=== PATIENT | female | born 1950 | race Caucasian/White ===

== ENCOUNTER 2022-07-05 11:54 | Outpatient (CLI) | payer MEDICARE, OTHER | END 2022-07-05 11:55 | disposition EMS.NT | LOC: EMS 11:54 | DX: R10.9 Unspecified abdominal pain (principal); M54.50 Low back pain, unspecified ==

== ENCOUNTER 2022-07-05 12:44 | Emergency (ER) | payer MEDICARE, OTHER ==
[2022-07-05 13:38] LABS: BASOPHILS % (AUTO) 0.5 %; EOSINOPHILS # (AUTO) 0.3 10^3/uL (0.0-0.7); HCT - HEMATOCRIT 37.9 % (37.0-47.0); HGB - HEMOGLOBIN 11.5 g/dL (12.0-16.0); LYMPHOCYTES # (AUTO) 2.3 10^3/uL (1.5-3.5); LYMPHOCYTES % (AUTO) 27.3 %; MEAN CORPUSCULAR HEMOGLOBIN 26.4 pg (27.0-31.0); MEAN CORPUSCULAR HGB CONC 30.3 g/dL (32.0-36.0); MEAN CORPUSCULAR VOLUME 87.1 fL (81.0-99.0); MEAN PLATELET VOLUME 8.3 fL (7.9-10.8); MONOCYTES # (AUTO) 0.8 10^3/uL (0.0-1.0); MONOCYTES % (AUTO) 9.1 %; NEUTROPHILS # (AUTO) 4.8 10^3/uL (1.5-6.6); NEUTROPHILS % (AUTO) 58.1 %; PLT - PLATELET COUNT 275 10^3/uL (130-450); RED BLOOD COUNT 4.35 10^6/uL (4.20-5.40); RED CELL DISTRIBUTION WIDTH 14.5 % (12.0-15.0); WHITE BLOOD COUNT 8.3 x10^3/uL (4.8-10.8)
[2022-07-05] MEDS ORDERED: KETOROLAC 30 MG/ML VIAL IVP STA (13:48)
[2022-07-05] MEDS ORDERED: HYDROmorphone 1 MG/ML CARPUJECT IVP STA (13:49)
[2022-07-05 13:51] LABS: ALBUMIN 3.9 g/dL (3.2-5.5); ALBUMIN/GLOBULIN RATIO 1.3 (1.0-2.2); BILIRUBIN,TOTAL 0.3 mg/dL (0.2-1.0); CALCIUM 9.3 mg/dL (8.5-10.3); CREATININE 0.6 mg/dL (0.4-1.0); POTASSIUM 4.8 mmol/L (3.5-5.0)
[2022-07-05 14:59] LABS: BILIRUBIN,URINE NEGATIVE (NEGATIVE); GLUCOSE, URINE (UA) NEGATIVE (NEGATIVE); KETONES,URINE (UA) NEGATIVE (NEGATIVE); LEUKOCYTE ESTERASE, URINE NEGATIVE (NEGATIVE); NITRITE,URINE NEGATIVE (NEGATIVE); OCCULT BLOOD,URINE NEGATIVE (NEGATIVE); PROTEIN,URINE NEGATIVE (NEGATIVE); UROBILINOGEN,URINE 0.2 (NORMAL) E.U./dL (NORMAL)
[2022-07-05 15:00] LABS: CLARITY,URINE CLEAR (CLEAR)
--- NOTE | 2022-07-05 15:36 | CT Report ---
PROCEDURE: Abdomen/Pelvis W INDICATIONS: diffuse abd pain CONTRAST: IV CONTRAST: Optiray 320 ml: 100 PO CONTRAST: *NO PO CONTRAST TECHNIQUE: After the administration of IV contrast, 5 mm thick sections acquired from the diaphragms to the symp hysis. 5 mm thick coronal and sagittal reformats were acquired. For radiation dose reduction, the f ollowing was used: automated exposure control, adjustment of mA and/or kV according to patient size. COMPARISON: None. FINDINGS: Image quality: Excellent. ABDOMEN: Lung bases: Lung bases are clear. Heart size is normal. Solid organs: Liver and spleen are normal in size and enhancement. Low-attenuation hepatic foci are present consistent with simple cyst. Gallbladder is unremarkable Biliary system is non dilated. Pa ncreas enhances normally. No adrenal nodules. Kidneys demonstrate normal size and enhancement, with out hydronephrosis. Peritoneum and bowel: Bowel loops demonstrate normal wall thickness and caliber. No free fluid or a ir. Prominent colonic stool is present without obstruction. Scattered diverticula are present withou t inflammatory change. Nodes and vessels: No retroperitoneal or mesenteric adenopathy by size criteria. Aorta and inferior vena cava are normal in size. Miscellaneous: No ventral hernias. PELVIS: Genitourinary: Bladder wall thickness is normal. Miscellaneous: No inguinal hernias or adenopathy. Bones: No suspicious bony lesions. No vertebral body compression fractures. IMPRESSION: Significant colonic stool consistent with constipation. No obstruction. Reviewed by: Violetta Marquez MD on 07/05/2022 3:34 PM PDT Approved by: Violetta Marquez MD on 07/05/2022 3:34 PM PDT Station ID: [id number]
--- NOTE | 2022-07-05 15:43 | ED Physician Documentation ---
History of Present Illness - Stated complaint Stated Complaint: PELVIC PX - Chief complaint Chief Complaint: Abd Pain - History obtained from History obtained from: Patient - History of Present Illness Timing: Chronic ("years") Pain level max: 9 Pain level now: 9 - Additonal information Additional information: Patient is a 72-year-old female who states that she just moved here this week. She states she has had chronic pelvic pain for many years. 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 She states that she is out of the lidocaine cream. She states she is also having lower abdominal pain and cramping. This is also been going on for years. No fevers. No chills. Has chronic back pain as well. No vaginal bleeding or discharge. No loss of bowel or bladder control. She is on chronic narcotic medication at home. She has an appointment with a new PCP next week. Nothing makes the pelvic pain better or worse. Patient states that she had a history of endometriosis when she was younger. Review of Systems Ten Systems: 10 systems reviewed and negative Constitutional: denies: Fever, Chills Nose: denies: Rhinorrhea / runny nose, Congestion Respiratory: denies: Cough GI: denies: Nausea, Vomiting, Diarrhea, Hematemesis, Bloody / black stool Skin: denies: Rash Musculoskeletal: denies: Neck pain, Back pain Neurologic: denies: Headache PD PAST MEDICAL HISTORY - Past Medical History Past Medical History: Yes Cardiovascular: Hypertension, High cholesterol Other Past Medical History: vulvodynia, chronic back pain, chronic pelvic pain, "spastic urethra" - Present Medications Home Medications: Ambulatory Orders Medication Instructions Recorded Confirmed Amlodipine Besylate [Norvasc] 5 mg PO DAILY 07/05/22 07/05/22 Atenolol [Tenormin] 100 mg PO DAILY 07/05/22 07/05/22 Atorvastatin [Lipitor] 20 mg PO DAILY 07/05/22 07/05/22 Azelastine HCl 137 mcg NS BID #1 each 07/05/22 Carisoprodol [Soma] 350 mg PO Q8HR PRN 07/05/22 07/05/22 Clobetasol 0.05% Oint [Temovate 1 applic TOP DAILY 07/05/22 07/05/22 0.05% Oint] Gabapentin [Neurontin] 600 mg PO Q6HR 07/05/22 07/05/22 Hydrocodone/Acetaminophen 10 - 325 mg PO Q4HR PRN 07/05/22 07/05/22 [Hydrocodone-Acetamin 10-325 mg] Lidocaine Ointment 5% [Xylocaine 1 applic TOP QID 07/05/22 07/05/22 Ointment 5%] Lidocaine Ointment 5% [Xylocaine 1 applic TOP QID PRN #35.44 gm 07/05/22 Ointment 5%] Losartan [Cozaar] 100 mg PO DAILY 07/05/22 07/05/22 Metformin HCl 1,000 mg PO BID 07/05/22 07/05/22 Miconazole Nitrate [Miconazole 7] 100 mg TOP HS 07/05/22 07/05/22 Omeprazole 20 mg PO DAILY 07/05/22 07/05/22 Oxymorphone HCl [Oxymorphone HCl 10 mg PO BID 07/05/22 07/05/22 ER] PARoxetine HCl [Paxil] 20 mg PO DAILY 07/05/22 07/05/22 Rivaroxaban [Xarelto] 20 mg PO DAILY 07/05/22 07/05/22 SITagliptin [Januvia] 100 mg PO DAILY 07/05/22 07/05/22 - Allergies Allergies/Adverse Reactions: Allergies Allergy/AdvReac Type Severity Reaction Status Date / Time amoxicillin [From Augmentin] Allergy Nausea Verified 07/05/22 13:11 clavulanic acid Allergy Nausea Verified 07/05/22 13:11 [From Augmentin] prochlorperazine Allergy Anaphylaxis Verified 07/05/22 13:11 [From Compazine] promethazine [From Phenergan] Allergy Unknown Verified 07/05/22 14:14 Sulfa (Sulfonamide Allergy Hives Verified 07/05/22 13:11 Antibiotics) - Living Situation Living Arrangement: reports: At home - Social History Does the pt have substance abuse?: No - Family History Family history: reports: Non contributory PD ED PE NORMAL - Vitals Vital signs reviewed: Yes - General General: Alert and oriented X 3, No acute distress - HEENT HEENT: PERRL, Moist mucous membranes - Neck Neck: Supple, no meningeal sign - Cardiac Cardiac: RRR - Respiratory Respiratory: No respiratory distress, Clear bilaterally - Abdomen Abdomen: Soft, Non tender, Non distended - Female Female : Pt declined - Back Back: No CVA TTP - Derm Derm: Warm and dry, No rash - Extremities Extremities: No edema, No calf tenderness / cord - Neuro Neuro: Alert and oriented X 3 - Psych Psych: Normal mood, Normal affect Results - Vitals Vitals: Vital Signs - 24 hr 07/05/22 07/05/22 07/05/22 13:02 16:04 16:29 Temperature 37.0 C Heart Rate 90 76 76 Respiratory 16 12 16 Rate Blood Pressure 122/100 H 135/69 H 135/69 H O2 Saturation 99 98 98 Oxygen O2 Source Room air - Labs Labs: Laboratory Tests 07/05/22 07/05/22 07/05/22 13:33 13:33 14:56 WBC 8.3 RBC 4.35 Hgb 11.5 L Hct 37.9 MCV 87.1 MCH 26.4 L MCHC 30.3 L RDW 14.5 Plt Count 275 MPV 8.3 Neut # (Auto) 4.8 Lymph # (Auto) 2.3 [place] # (Auto) 0.8 Eos # (Auto) 0.3 Baso # (Auto) 0.0 Absolute Nucleated RBC 0.00 Nucleated RBC % 0.0 Sodium 132 L Potassium 4.8 Chloride 91 L Carbon Dioxide 33 H Anion Gap 8.0 BUN 14 Creatinine 0.6 Estimated GFR (MDRD) 98 Glucose 98 Calcium 9.3 Total Bilirubin 0.3 AST 19 ALT 19 Alkaline Phosphatase 72 Total Protein 7.0 Albumin 3.9 Globulin 3.1 Albumin/Globulin Ratio 1.3 Lipase 40 Urine Color YELLOW Urine Clarity CLEAR Urine pH 7.0 Ur Specific [place] 1.015 Urine Protein NEGATIVE Urine Glucose (UA) NEGATIVE Urine Ketones NEGATIVE Urine Occult Blood NEGATIVE Urine Nitrite NEGATIVE Urine Bilirubin NEGATIVE Urine Urobilinogen 0.2 (NORMAL) Ur Leukocyte Esterase NEGATIVE Ur Microscopic Review NOT INDICATED Urine Culture Comments NOT INDICATED - Rads (name of study) CT abdomen pelvis Radiology: Final report received, EMP read contemporaneously, See rad report PD MEDICAL DECISION MAKING - ED course Complexity details: reviewed results, re-evaluated patient, considered differential, d/w patient ED course: Patient is a 72-year-old female with chronic back and chronic pelvic pain. She states that she is out of her lidocaine and we will refill this for her. She is also out of her nasal spray. This was prescribed as well. CT scan does not show any acute findings other than constipation. Patient states that she will manage this at home with her laxatives. Pain well controlled here. Patient states he has plenty of pain medication for home. Recommend that she follow-up with her PCP for further care. We also discussed that given her multitude of medical issues, she will likely need to seek medical care [place] such as [facility] or [facility] in [place]. She states that she is supposed to see ENT, neurology, spine surgery, gynecology, and gastroenterology. [place] Patient is currently feeling better and would like to go home. Patient counseled regarding signs and symptoms for which I believe and urgent re-evaluation would be necessary. Patient with good understanding of and agreement to plan and is comfortable going home at this time This document was made in part using voice recognition software. While efforts are made to proofread this document, sound alike and grammatical errors may occur. Departure - Departure Disposition: 01 Home, Self Care Clinical Impression: Pelvic pain in female Constipation Qualifiers: Constipation type: unspecified constipation type Qualified Code(s): K59.00 - Constipation, unspecified Condition: Good Instructions: ED Abdominal Pain Female Non-Specific Abdominal Pain Follow-Up: your,doctor in 1 week [Other] [facility] [Provider Group] [facility] [Provider Group] Prescriptions: Azelastine HCl 137 mcg NS BID #1 each Lidocaine Ointment 5% [Xylocaine Ointment 5%] 1 applic TOP QID PRN #35.44 gm PRN Reason: pain Comments: The cause of your symptoms is unclear today. Your laboratory testing does not show any acute abnormalities. Your urinalysis is normal. Your CT scan shows constipation. Please continue your current medications and follow-up with your doctor for further care. As we discussed your complicated medical needs will need to see specialist [place]. It is recommended that you establish care with either the [facility], [place], operated by [facility] or [facility]. Discharge Date/Time: 07/05/22 16:31
[2022-07-05 16:04] VITALS: BP 135/69
== END 2022-07-05 16:31 | disposition home or self-care (01) ==
LOC: ED 12:44
DX: R10.2 Pelvic and perineal pain (principal); K59.00 Constipation, unspecified
CPT/HCPCS: 36415; 74177; 80053; 81003; 83690; 85025; 96374; 96375; 99284; J1170; Q9967; 81001; 87086

== ENCOUNTER 2022-10-31 16:29 | Outpatient (CLI) | payer MEDICARE, OTHER | END 2022-10-31 23:59 | disposition critical access hospital (66) | LOC: EMS 16:29 | DX: R05.9 Cough, unspecified (principal); R06.02 Shortness of breath; M54.9 Dorsalgia, unspecified; R07.9 Chest pain, unspecified; F41.9 Anxiety disorder, unspecified | CPT/HCPCS: A0425; A0427 ==

== ENCOUNTER 2022-10-31 16:46 | Emergency (ER) | payer MEDICARE, OTHER ==
--- NOTE | 2022-10-31 17:18 | ED Physician Documentation ---
PD HPI CHEST PAIN - Stated complaint Stated Complaint: CP/SOA/COUGH - Chief complaint Chief Complaint: Cardiac - History obtained from History obtained from: Patient, EMS - History of Present Illness Timing - onset: Last night (onset of left parasternal and pectoral area pain with coughing and breathing started last evening, but she has had cough and dyspnea/wheezing for 4-5 days.) Timing - onset during: Rest, Light activity Timing - details: Gradual onset, Still present, Waxing and waning Quality: Aching, Sharp (with cough and breathing), Pain Location: Substernal, Left chest Radiation: No: Jaw, Neck, Back Improved by: Rest Worsened by: Inspiration, Movement, Other (cough) Associated symptoms: Shortness of air, Cough (with wheezing andgreen sputum production for few days. Started with clear phlegm cough.) Similar symptoms before: Diagnosis (history of COPD and pneumonia in the past. States she has home oxygen at 2-3 lpm. MDIs and nebulizer. Had CPAP but it is in storage when moved here 4 months ago.) Recently seen: Not recently seen Review of Systems Constitutional: reports: Chills, Myalgias. denies: Fever Nose: reports: Congestion Throat: denies: Sore throat Cardiac: reports: Chest pain / pressure. denies: Palpitations, Pedal edema, Calf pain Respiratory: reports: Dyspnea, Cough, Wheezing GI: denies: Abdominal Pain, Nausea, Vomiting, Diarrhea Skin: denies: Rash, Lesions Neurologic: reports: Generalized weakness. denies: Focal weakness, Numbness, Near syncope Psychiatric: reports: Depressed, Anxiety, Insomnia PD PAST MEDICAL HISTORY - Past Medical History Cardiovascular: Hypertension, High cholesterol Respiratory: COPD, Sleep apnea Endocrine/Autoimmune: Type 2 diabetes GI: None Psych: Anxiety - Present Medications Home Medications: Ambulatory Orders Medication Instructions Recorded Confirmed Amlodipine Besylate [Norvasc] 5 mg PO DAILY 07/05/22 07/05/22 Atenolol [Tenormin] 100 mg PO DAILY 07/05/22 07/05/22 Atorvastatin [Lipitor] 20 mg PO DAILY 07/05/22 07/05/22 Azelastine HCl 137 mcg NS BID #1 each 07/05/22 Carisoprodol [Soma] 350 mg PO Q8HR PRN 07/05/22 07/05/22 Clobetasol 0.05% Oint [Temovate 1 applic TOP DAILY 07/05/22 07/05/22 0.05% Oint] Gabapentin [Neurontin] 600 mg PO Q6HR 07/05/22 07/05/22 Hydrocodone/Acetaminophen 10 - 325 mg PO Q4HR PRN 07/05/22 07/05/22 [Hydrocodone-Acetamin 10-325 mg] Lidocaine Ointment 5% [Xylocaine 1 applic TOP QID 07/05/22 07/05/22 Ointment 5%] Lidocaine Ointment 5% [Xylocaine 1 applic TOP QID PRN #35.44 gm 07/05/22 Ointment 5%] Losartan [Cozaar] 100 mg PO DAILY 07/05/22 07/05/22 Metformin HCl 1,000 mg PO BID 07/05/22 07/05/22 Miconazole Nitrate [Miconazole 7] 100 mg TOP HS 07/05/22 07/05/22 Omeprazole 20 mg PO DAILY 07/05/22 07/05/22 Oxymorphone HCl [Oxymorphone HCl 10 mg PO BID 07/05/22 07/05/22 ER] PARoxetine HCL [Paxil] 20 mg PO DAILY 07/05/22 07/05/22 Rivaroxaban [Xarelto] 20 mg PO DAILY 07/05/22 07/05/22 SITagliptin [Januvia] 100 mg PO DAILY 07/05/22 07/05/22 ALPRAZolam [Xanax] 0.25 mg PO BID PRN #10 tablet 10/31/22 Albuterol Sulf [Ventolin Hfa 2 - 3 puffs INH QID #1 each 10/31/22 Inhaler] Benzonatate [Tessalon] 100 mg PO TID PRN #20 cap 10/31/22 Doxycycline Hyclate 100 mg PO BID 5 Days #10 cap 10/31/22 dexAMETHasone [Decadron] 4 mg PO DAILY #5 tablet 10/31/22 - Allergies Allergies/Adverse Reactions: Allergies Allergy/AdvReac Type Severity Reaction Status Date / Time amoxicillin [From Augmentin] Allergy Nausea Verified 07/05/22 13:11 clavulanic acid Allergy Nausea Verified 07/05/22 13:11 [From Augmentin] prochlorperazine Allergy Anaphylaxis Verified 07/05/22 13:11 [From Compazine] promethazine [From Phenergan] Allergy Unknown Verified 07/05/22 14:14 Sulfa (Sulfonamide Allergy Hives Verified 07/05/22 13:11 Antibiotics) - Social History Does the pt have substance abuse?: No PD ED PE NORMAL - Vitals Vital signs reviewed: Yes - General General: Alert and oriented X 3, No acute distress, Well developed/nourished - HEENT HEENT: Pharynx benign - Neck Neck: Supple, no meningeal sign, No adenopathy - Cardiac Cardiac: RRR, No murmur - Respiratory Respiratory: No respiratory distress. No: Clear bilaterally (some wheezing noted centrally. there is left parasternal and medial pectoral area chestwall tenderness to palpation. ) - Abdomen Abdomen: Soft, Non tender - Derm Derm: Normal color, Warm and dry, No rash - Extremities Extremities: No edema, No calf tenderness / cord - Neuro Neuro: Alert and oriented X 3, No motor deficit, Normal speech Results - Vitals Vitals: Vital Signs - 24 hr 10/31/22 10/31/22 10/31/22 16:57 17:03 19:01 Temperature 36.0 C L Heart Rate 78 73 Respiratory 18 14 Rate Blood Pressure 158/82 H 197/99 H Blood Pressure 158/82 H [Right] O2 Saturation 100 99 If not protocol 3 : Oxygen Flow, liters/minute 10/31/22 10/31/22 19:29 19:53 Temperature Heart Rate 79 87 Respiratory 16 15 Rate Blood Pressure 189/121 H Blood Pressure [Right] O2 Saturation 100 If not protocol 3 2 : Oxygen Flow, liters/minute Oxygen O2 Source Nasal cannula - EKG (time done) 16:57 Rate: Rate (enter#) (73) Rhythm: NSR [place]: Normal Intervals: Normal MD QRS: Normal Ischemia: Normal ST segments. No: ST elevation c/w ischemia, ST depression - Labs Labs: Laboratory Tests 10/31/22 10/31/22 10/31/22 17:19 17:19 17:19 WBC 8.6 RBC 4.24 Hgb 11.4 L Hct 37.4 MCV 88.2 MCH 26.9 L MCHC 30.5 L RDW 15.9 H Plt Count 264 MPV 8.6 Neut # (Auto) 5.4 Lymph # (Auto) 2.1 [place] # (Auto) 0.7 Eos # (Auto) 0.2 Baso # (Auto) 0.1 Absolute Nucleated RBC 0.00 Nucleated RBC % 0.0 PT INR Sodium 134 L Potassium 4.1 Chloride 91 L Carbon Dioxide 29 Anion Gap 14.0 H BUN 12 Creatinine 0.7 Estimated GFR (MDRD) 82 L Glucose 171 H Calcium 9.4 Magnesium Total Bilirubin 0.3 AST 21 ALT 22 Alkaline Phosphatase 74 Troponin I High Sens 4.5 B-Natriuretic Peptide Total Protein 7.2 Albumin 3.9 Globulin 3.3 Albumin/Globulin Ratio 1.2 Lipase 37 Nasal Adenovirus (PCR) Nasal B. parapertussis DNA (PCR) Nasal Coronavir 229E PCR Nasal Coronavir HKU1 PCR Nasal Coronavir NL63 PCR Nasal Coronavir OC43 PCR Nasal Enterovir/Rhinovir PCR Nasal Influenza B PCR Nasal Influenza A PCR Nasal Parainfluen 1 PCR Nasal Parainfluen 2 PCR Nasal Parainfluen 3 PCR Nasal Parainfluen 4 PCR Nasal RSV (PCR) Nasal B.pertussis DNA PCR Nasal C.pneumoniae (PCR) Johnny Human Metapneumo PCR Nasal M.pneumoniae (PCR) Nasal SARS-CoV-2 (PCR) 10/31/22 10/31/22 10/31/22 17:19 17:19 17:45 WBC RBC Hgb Hct MCV MCH MCHC RDW Plt Count MPV Neut # (Auto) Lymph # (Auto) [place] # (Auto) Eos # (Auto) Baso # (Auto) Absolute Nucleated RBC Nucleated RBC % PT 19.0 H INR 1.8 H Sodium Potassium Chloride Carbon Dioxide Anion Gap BUN Creatinine Estimated GFR (MDRD) Glucose Calcium Magnesium 2.1 Total Bilirubin AST ALT Alkaline Phosphatase Troponin I High Sens B-Natriuretic Peptide 146 H Total Protein Albumin Globulin Albumin/Globulin Ratio Lipase Nasal Adenovirus (PCR) Nasal B. parapertussis DNA (PCR) Nasal Coronavir 229E PCR Nasal Coronavir HKU1 PCR Nasal Coronavir NL63 PCR Nasal Coronavir OC43 PCR Nasal Enterovir/Rhinovir PCR Nasal Influenza B PCR Nasal Influenza A PCR Nasal Parainfluen 1 PCR Nasal Parainfluen 2 PCR Nasal Parainfluen 3 PCR Nasal Parainfluen 4 PCR Nasal RSV (PCR) Nasal B.pertussis DNA PCR Nasal C.pneumoniae (PCR) Johnny Human Metapneumo PCR Nasal M.pneumoniae (PCR) Nasal SARS-CoV-2 (PCR) 10/31/22 18:00 WBC RBC Hgb Hct MCV MCH MCHC RDW Plt Count MPV Neut # (Auto) Lymph # (Auto) [place] # (Auto) Eos # (Auto) Baso # (Auto) Absolute Nucleated RBC Nucleated RBC % PT INR Sodium Potassium Chloride Carbon Dioxide Anion Gap BUN Creatinine Estimated GFR (MDRD) Glucose Calcium Magnesium Total Bilirubin AST ALT Alkaline Phosphatase Troponin I High Sens B-Natriuretic Peptide Total Protein Albumin Globulin Albumin/Globulin Ratio Lipase Nasal Adenovirus (PCR) NOT DETECTED Nasal B. parapertussis DNA (PCR) NOT DETECTED Nasal Coronavir 229E PCR NOT DETECTED Nasal Coronavir HKU1 PCR NOT DETECTED Nasal Coronavir NL63 PCR NOT DETECTED Nasal Coronavir OC43 PCR NOT DETECTED Nasal Enterovir/Rhinovir PCR NOT DETECTED Nasal Influenza B PCR NOT DETECTED Nasal Influenza A PCR NOT DETECTED Nasal Parainfluen 1 PCR NOT DETECTED Nasal Parainfluen 2 PCR NOT DETECTED Nasal Parainfluen 3 PCR NOT DETECTED Nasal Parainfluen 4 PCR NOT DETECTED Nasal RSV (PCR) NOT DETECTED Nasal B.pertussis DNA PCR NOT DETECTED Nasal C.pneumoniae (PCR) NOT DETECTED Johnny Human Metapneumo PCR NOT DETECTED Nasal M.pneumoniae (PCR) NOT DETECTED Nasal SARS-CoV-2 (PCR) NOT DETECTED - Rads (name of study) chest xray Radiology: Prelim report reviewed (no acute process), See rad report PD Medical Decision Making - ED course Complexity details: reviewed results, re-evaluated patient, considered differential (seems like URI and cough and pleuritic or muscular chest pain. can check labs and CXR/ECG to ensure not more. She does have anxiety as well. History of COPD and PCR neg so consider possible bacterial component. Allergy to PCN, so will go with doxy. ), d/w patient Departure - Departure Disposition: 01 Home, Self Care Clinical Impression: Acute exacerbation of COPD with asthma, Anxiety, Acute chest wall pain Upper respiratory infection Qualifiers: URI type: unspecified URI Qualified Code(s): J06.9 - Acute upper respiratory infection, unspecified Condition: Stable Record reviewed to determine appropriate education?: Yes Instructions: ED Upper Resp Infec Abx Tx, ED Strain Chest Wall Follow-Up: Raúl Nguyen MD [Primary Care Provider] - Prescriptions: dexAMETHasone [Decadron] 4 mg PO DAILY #5 tablet Doxycycline Hyclate 100 mg PO BID 5 Days #10 cap Benzonatate [Tessalon] 100 mg PO TID PRN #20 cap PRN Reason: Cough Albuterol Sulf [Ventolin Hfa Inhaler] 2 - 3 puffs INH QID #1 each ALPRAZolam [Xanax] 0.25 mg PO BID PRN #10 tablet PRN Reason: Anxiety Comments: Your chest x-ray and blood tests are good and normal. This excludes pneumonia, fluid around the lungs, heart attack, heart failure, anemia or electrolyte problems. It does sound likely you have a viral type illness which has flared up your COPD. Given history of COPD and some increasing cough and sputum, consideration would be potential bacterial infection as well. We can give doxycycline antibiotic twice daily for 5 days in case. To help with your breathing and cough so that there is less chest discomfort, I would suggest using your albuterol inhaler 2 to 3 puffs 4 times daily regularly for the next week or so. Add Decadron steroid for bronchial inflammation daily for 5 days and benzonatate/Tessalon if needed for cough. Continue with your other usual medicines. Be aware the steroid may increase your blood sugars over this several days that you take it and you might need to adjust your medications. Recheck if not improving well over the next few days. Regarding your anxiety that you get, I wrote a prescription for Xanax to use twice daily if needed for this for just the short-term. Anything further or longer-term would be per your primary care. I sent your prescriptions to [facility] pharmacy. Discharge Date/Time: 10/31/22 20:26
[2022-10-31 17:36] LABS: BASOPHILS # (AUTO) 0.1 10^3/uL (0.0-0.1); BASOPHILS % (AUTO) 0.6 %; EOSINOPHILS # (AUTO) 0.2 10^3/uL (0.0-0.7); EOSINOPHILS % (AUTO) 2.1 %; HCT - HEMATOCRIT 37.4 % (37.0-47.0); HGB - HEMOGLOBIN 11.4 g/dL (12.0-16.0); LYMPHOCYTES # (AUTO) 2.1 10^3/uL (1.5-3.5); LYMPHOCYTES % (AUTO) 24.2 %; MEAN CORPUSCULAR HEMOGLOBIN 26.9 pg (27.0-31.0); MEAN CORPUSCULAR HGB CONC 30.5 g/dL (32.0-36.0); MEAN CORPUSCULAR VOLUME 88.2 fL (81.0-99.0); MEAN PLATELET VOLUME 8.6 fL (7.9-10.8); MONOCYTES # (AUTO) 0.7 10^3/uL (0.0-1.0); MONOCYTES % (AUTO) 8.2 %; NEUTROPHILS # (AUTO) 5.4 10^3/uL (1.5-6.6); NEUTROPHILS % (AUTO) 63.3 %; PLT - PLATELET COUNT 264 10^3/uL (130-450); RED BLOOD COUNT 4.24 10^6/uL (4.20-5.40); RED CELL DISTRIBUTION WIDTH 15.9 % (12.0-15.0); WHITE BLOOD COUNT 8.6 x10^3/uL (4.8-10.8)
[2022-10-31] MEDS ORDERED: KETOROLAC 15 MG/ML VIAL IVP STA (17:37)
[2022-10-31] MEDS ORDERED: HYDROmorphone 1 MG/ML CARPUJECT IVP STA (17:37)
[2022-10-31 17:49] LABS: ALBUMIN 3.9 g/dL (3.2-5.5); ALBUMIN/GLOBULIN RATIO 1.2 (1.0-2.2); BILIRUBIN,TOTAL 0.3 mg/dL (0.2-1.0); CALCIUM 9.4 mg/dL (8.5-10.3); CREATININE 0.7 mg/dL (0.4-1.0); POTASSIUM 4.1 mmol/L (3.5-5.0); TOTAL PROTEIN 7.2 g/dL (6.7-8.2)
[2022-10-31 17:56] LABS: INR 1.8 (0.8-1.2)
--- NOTE | 2022-10-31 18:33 | XRAY Report ---
PROCEDURE: Chest 1 View X-Ray INDICATIONS: Chest Pain TECHNIQUE: One view of the chest was acquired. COMPARISON: None. FINDINGS: Surgical changes and devices: Cervical spine fusion hardware present. Lungs and pleura: Diffuse interstitial thickening bilaterally. No dense consolidation, effusion, or pneumothorax. Mediastinum: No central vascular congestion. Normal heart and mediastinal contour. Bones and chest wall: No suspicious bony lesions. Probable remote left proximal humeral fracture, he aled. Overlying soft tissues appear unremarkable. IMPRESSION: 1. Diffuse interstitial prominence may reflect interstitial or viral pneumonitis, or be evidence of u nderlying chronic interstitial lung disease. Reviewed by: Joellen Flowers MD on 10/31/2022 6:31 PM PST Approved by: Joellen Flowers MD on 10/31/2022 6:31 PM PST Station ID: [id number]
[2022-10-31] MEDS ORDERED: ALBUTEROL NEB 2.5 MG/3 ML INH STA (18:51)
[2022-10-31] MEDS ORDERED: BENZONATATE 100 MG CAPSULE PO STA (18:51)
[2022-10-31] MEDS ORDERED: DOXYCYCLINE 100 MG TABLET PO STA (18:52)
[2022-10-31] MEDS ORDERED: LORazepam 2 MG/ML VIAL IVP STA (18:52)
[2022-10-31] MEDS ORDERED: DEXAMETHASONE 10 MG/ML VIAL IVP STA (18:53)
[2022-10-31 19:13] LABS: B. PARAPERTUSSIS- RESP PCR PAN NOT DETECTED; B. PERTUSSIS- RESP PCR PANEL NOT DETECTED; C. PNEUMONIAE- RESP PCR PANEL NOT DETECTED; CORONAVIRUS 229E-RESP PCR NOT DETECTED; CORONAVIRUS HKU1-RESP PCR NOT DETECTED; CORONAVIRUS NL63-RESP PCR NOT DETECTED; CORONAVIRUS OC43-RESP PCR NOT DETECTED; HUMAN METAPNEUMOVIRUS NOT DETECTED; INFLUENZA A- RESP PCR PANEL NOT DETECTED; INFLUENZA B - RESP PCR PANEL NOT DETECTED; M. PNEUMONIAE- RESP PCR PANEL NOT DETECTED; PARAINFLUENZA VIRUS 1 NOT DETECTED; PARAINFLUENZA VIRUS 2 NOT DETECTED; PARAINFLUENZA VIRUS 3 NOT DETECTED; PARAINFLUENZA VIRUS 4 NOT DETECTED; RHINOVIRUS/ENTEROVIRUS NOT DETECTED; RSV- RESP PCR PANEL NOT DETECTED; SARS-CoV-2 -RESP PCR PANEL NOT DETECTED
[2022-10-31 19:54] VITALS: BP 189/121
== END 2022-10-31 20:26 | disposition home or self-care (01) ==
LOC: EDUNIT# → ED 16:46
DX: J44.1 Chronic obstructive pulmonary disease with (acute) exacerbation (principal); F41.9 Anxiety disorder, unspecified; R07.89 Other chest pain; J06.9 Acute upper respiratory infection, unspecified; Z20.822 Contact with and (suspected) exposure to COVID-19; E11.9 Type 2 diabetes mellitus without complications
CPT/HCPCS: 36415; 71045; 80053; 83690; 83735; 83880; 84484; 85025; 85610; 87633; 93005; 94640; 96374; 96375; 99284; A9270; J1170; J2060

== ENCOUNTER 2022-11-18 18:18 | Emergency (ER) | payer MEDICARE, OTHER ==
[2022-11-18 19:53] LABS: BASOPHILS # (AUTO) 0.1 10^3/uL (0.0-0.1); BASOPHILS % (AUTO) 0.8 %; EOSINOPHILS # (AUTO) 0.3 10^3/uL (0.0-0.7); EOSINOPHILS % (AUTO) 4.1 %; HCT - HEMATOCRIT 35.6 % (37.0-47.0); HGB - HEMOGLOBIN 10.6 g/dL (12.0-16.0); LYMPHOCYTES # (AUTO) 2.2 10^3/uL (1.5-3.5); LYMPHOCYTES % (AUTO) 30.7 %; MEAN CORPUSCULAR HEMOGLOBIN 26.8 pg (27.0-31.0); MEAN CORPUSCULAR HGB CONC 29.8 g/dL (32.0-36.0); MEAN CORPUSCULAR VOLUME 90.1 fL (81.0-99.0); MEAN PLATELET VOLUME 8.4 fL (7.9-10.8); MONOCYTES # (AUTO) 0.8 10^3/uL (0.0-1.0); MONOCYTES % (AUTO) 11.6 %; NEUTROPHILS # (AUTO) 3.6 10^3/uL (1.5-6.6); NEUTROPHILS % (AUTO) 51.4 %; PLT - PLATELET COUNT 256 10^3/uL (130-450); RED BLOOD COUNT 3.95 10^6/uL (4.20-5.40); RED CELL DISTRIBUTION WIDTH 15.4 % (12.0-15.0); WHITE BLOOD COUNT 7.1 x10^3/uL (4.8-10.8)
[2022-11-18] MEDS: KETOROLAC 15 MG/ML VIAL IVP STA (19:53)
[2022-11-18 20:07] LABS: ALBUMIN 3.6 g/dL (3.2-5.5); ALBUMIN/GLOBULIN RATIO 1.2 (1.0-2.2); BILIRUBIN,TOTAL 0.4 mg/dL (0.2-1.0); CALCIUM 8.6 mg/dL (8.5-10.3); CREATININE 0.7 mg/dL (0.4-1.0); TOTAL PROTEIN 6.6 g/dL (6.7-8.2)
[2022-11-18] MEDS ORDERED: iohexoL-300 100 ML VIAL ONE (20:09)
[2022-11-18] MEDS: iohexoL-300 100 ML VIAL IVP ONE (21:00)
--- NOTE | 2022-11-18 22:12 | CT Report ---
PROCEDURE: ANGIO CHEST W/WO INDICATIONS: chest pain, soa, coughing up blood, hx clots CONTRAST: 80mL Omni 300 TECHNIQUE: After the administration of intravenous contrast, 2 mm axial images were acquired from the pulmonary apices to the posterior costophrenic angles during the arterial phase. In addition, 1 mm lung kernel and 5 mm soft tissue kernel reconstructions were performed. 3-dimensional coronal oblique maximum int ensity projection (MIP) reformats, 8 mm axial MIP, and 5 mm coronal and sagittal MPR reformats were t hen performed through the thorax. For radiation dose reduction, the following was used: automated exp osure control, adjustment of mA and/or kV according to patient size. COMPARISON: Chest x-ray 10/04/2022. CT abdomen pelvis 07/05/2022. FINDINGS: Image quality: There is metallic streak artifact secondary to patient's surgical hardware in the lowe r cervical spine. Pulmonary arteries: Pulmonary arteries are normal in size, and demonstrate no intraluminal filling d efects to suggest central pulmonary embolism. Lower Neck: No lymphadenopathy by size criteria. Thyroid: Visualized thyroid demonstrates no discrete nodules. Axillae: No lymphadenopathy by size criteria. Chest Wall: Unremarkable. Bones: Visualized osseous structures demonstrate no suspicious lesions. Lungs and Airways: There are patchy peripheral predominantly posterior areas of groundglass opacity within the lung bases. The trachea and central airways are patent. Pleura: No pneumothorax or pleural effusions. Heart: Heart size is normal. No pericardial effusion. Thoracic Vessels: The thoracic aorta is normal in size. Mediastinum and [place]: No lymphadenopathy by size criteria. Esophagus: No wall thickening. No hiatal hernia. Abdomen: Visualized upper abdomen redemonstrates 2 cysts within the visualized liver. IMPRESSION: 1. No evidence of pulmonary embolism. 2. Peripheral patchy areas of groundglass opacity in the lung bases with a posterior predominance. Th e findings are suggestive of atelectasis but the differential includes pneumonia or sequelae of aspir ation. Reviewed by: Levar Zuluaga MD on 11/18/2022 10:10 PM PST Approved by: Levar Zuluaga MD on 11/18/2022 10:10 PM PST Station ID: [id number]
--- NOTE | 2022-11-18 22:29 | ED Physician Documentation ---
History of Present Illness - Stated complaint Stated Complaint: BACK PX/SINUS PX - Chief complaint Chief Complaint: General - History obtained from History obtained from: Patient - Additonal information Additional information: 72-year-old woman presented with hemoptysis for the past couple of days , Chest pain, body aches, chills, shortness of breath, and recent bout of bronchitis a few weeks ago. Also with chronic right hip and shoulder pain. Patient asked for Dilaudid by name upon my initial interview. Review of Systems Constitutional: reports: Chills, Myalgias, Fatigue Cardiac: reports: Chest pain / pressure Respiratory: reports: Dyspnea, Cough, Hemoptysis, Wheezing GI: denies: Nausea Musculoskeletal: reports: Joint pain PD PAST MEDICAL HISTORY - Past Medical History Past Medical History: Yes Cardiovascular: Hypertension, High cholesterol Respiratory: COPD, Sleep apnea Endocrine/Autoimmune: Type 2 diabetes GI: None Psych: Anxiety - Present Medications Home Medications: Ambulatory Orders Medication Instructions Recorded Confirmed Amlodipine Besylate [Norvasc] 5 mg PO DAILY 07/05/22 07/05/22 Atenolol [Tenormin] 100 mg PO DAILY 07/05/22 07/05/22 Atorvastatin [Lipitor] 20 mg PO DAILY 07/05/22 07/05/22 Azelastine HCl 137 mcg NS BID #1 each 07/05/22 Carisoprodol [Soma] 350 mg PO Q8HR PRN 07/05/22 07/05/22 Clobetasol 0.05% Oint [Temovate 1 applic TOP DAILY 07/05/22 07/05/22 0.05% Oint] Gabapentin [Neurontin] 600 mg PO Q6HR 07/05/22 07/05/22 Hydrocodone/Acetaminophen 10 - 325 mg PO Q4HR PRN 07/05/22 07/05/22 [Hydrocodone-Acetamin 10-325 mg] Lidocaine Ointment 5% [Xylocaine 1 applic TOP QID 07/05/22 07/05/22 Ointment 5%] Lidocaine Ointment 5% [Xylocaine 1 applic TOP QID PRN #35.44 gm 07/05/22 Ointment 5%] Losartan [Cozaar] 100 mg PO DAILY 07/05/22 07/05/22 Metformin HCl 1,000 mg PO BID 07/05/22 07/05/22 Miconazole Nitrate [Miconazole 7] 100 mg TOP HS 07/05/22 07/05/22 Omeprazole 20 mg PO DAILY 07/05/22 07/05/22 Oxymorphone HCl [Oxymorphone HCl 10 mg PO BID 07/05/22 07/05/22 ER] PARoxetine HCL [Paxil] 20 mg PO DAILY 07/05/22 07/05/22 Rivaroxaban [Xarelto] 20 mg PO DAILY 07/05/22 07/05/22 SITagliptin [Januvia] 100 mg PO DAILY 07/05/22 07/05/22 ALPRAZolam [Xanax] 0.25 mg PO BID PRN #10 tablet 10/31/22 Albuterol Sulf [Ventolin Hfa 2 - 3 puffs INH QID #1 each 10/31/22 Inhaler] Benzonatate [Tessalon] 100 mg PO TID PRN #20 cap 10/31/22 Doxycycline Hyclate 100 mg PO BID 5 Days #10 cap 10/31/22 dexAMETHasone [Decadron] 4 mg PO DAILY #5 tablet 10/31/22 levoFLOXacin [Levofloxacin] 750 mg PO QDAC #7 tablet 11/18/22 - Allergies Allergies/Adverse Reactions: Allergies Allergy/AdvReac Type Severity Reaction Status Date / Time amoxicillin [From Augmentin] Allergy Nausea Verified 07/05/22 13:11 clavulanic acid Allergy Nausea Verified 07/05/22 13:11 [From Augmentin] prochlorperazine Allergy Anaphylaxis Verified 07/05/22 13:11 [From Compazine] promethazine [From Phenergan] Allergy Unknown Verified 07/05/22 14:14 Sulfa (Sulfonamide Allergy Hives Verified 07/05/22 13:11 Antibiotics) Paper Tape Allergy Rash Uncoded 11/18/22 18:26 - Social History Does the pt smoke?: No Smoking Status: Never smoker Does the pt have substance abuse?: No PD ED PE NORMAL - Vitals Vital signs reviewed: Yes - General General: Alert and oriented X 3, No acute distress, Other (large body habitus) - HEENT HEENT: Atraumatic, PERRL, EOMI - Neck Neck: Supple, no meningeal sign - Cardiac Cardiac: RRR - Respiratory Respiratory: Other (Bilateral distant breath sounds) - Abdomen Abdomen: Non tender, Non distended - Derm Derm: Normal color, Warm and dry - Extremities Extremities: No deformity, Normal ROM s pain Results - Vitals Vitals: Vital Signs - 24 hr 11/18/22 18:22 Temperature 36.7 C Heart Rate 75 Respiratory 18 Rate Blood Pressure 153/79 H O2 Saturation 99 Oxygen O2 Source Room air - Labs Labs: Laboratory Tests 11/18/22 11/18/22 19:50 19:50 WBC 7.1 RBC 3.95 L Hgb 10.6 L Hct 35.6 L MCV 90.1 MCH 26.8 L MCHC 29.8 L RDW 15.4 H Plt Count 256 MPV 8.4 Neut # (Auto) 3.6 Lymph # (Auto) 2.2 [place] # (Auto) 0.8 Eos # (Auto) 0.3 Baso # (Auto) 0.1 Absolute Nucleated RBC 0.00 Nucleated RBC % 0.0 Sodium 128 L Potassium 4.0 Chloride 89 L Carbon Dioxide 29 Anion Gap 10.0 BUN 9 Creatinine 0.7 Estimated GFR (MDRD) 82 L Glucose 143 H Calcium 8.6 Total Bilirubin 0.4 AST 19 ALT 17 Alkaline Phosphatase 73 Total Protein 6.6 L Albumin 3.6 Globulin 3.0 Albumin/Globulin Ratio 1.2 Lipase 27 PD Medical Decision Making - ED course ED course: 72-year-old woman presented withHemoptysis, shortness of breath and chest pain. She is on Xarelto for prior history of pulmonary embolism however there is a possibility of PE refractory to anticoagulation therefore a CT pulmonary embolism study was ordered that uncovered no pulmonary embolism but did show possible pneumonia. Patient has no leukocytosis on CBC But lab work was remarkable for some anemia that is reasonably stable from previous as well as a sodium of 128 down from 134 previously. This could reflect pneumonia such as legionnaires disease. Will provide antibiotic levofloxacin which covers atypicals and return precautions were discussed. Plan to follow-up with primary care provider this week. Departure - Departure Disposition: 01 Home, Self Care Clinical Impression: Hemoptysis, Pneumonia Condition: Good Instructions: Pneumonia Tx Prescriptions: levoFLOXacin [Levofloxacin] 750 mg PO QDAC #7 tablet Comments: You were seen in the emergency department for pneumonia. Prescription for antibiotics was Sent electronically to [facility] in [place] Please follow-up with your primary care provider and return to the emergency department if you have any new or worsening symptoms or other concerns.
[2022-11-18] MEDS: levoFLOXacin 250 MG TABLET PO STA (22:37)
[2022-11-18 22:39] VITALS: BP 155/73
== END 2022-11-18 23:12 | disposition home or self-care (01) ==
LOC: EDUNIT# → ED 18:18
DX: R04.2 Hemoptysis (principal); J18.9 Pneumonia, unspecified organism; I10 Essential (primary) hypertension; E11.9 Type 2 diabetes mellitus without complications; Z79.84 Long term (current) use of oral hypoglycemic drugs
CPT/HCPCS: 36415; 71275; 80053; 83690; 85025; 96374; 99284; A9270; Q9967

== ENCOUNTER 2022-12-09 17:00 | Outpatient (CLI) | payer MEDICARE, OTHER ==
[2022-12-09 21:05] LABS: BASOPHILS # (AUTO) 0.1 10^3/uL (0.0-0.1); BASOPHILS % (AUTO) 0.6 %; EOSINOPHILS # (AUTO) 0.2 10^3/uL (0.0-0.7); EOSINOPHILS % (AUTO) 1.8 %; HCT - HEMATOCRIT 38.9 % (37.0-47.0); HGB - HEMOGLOBIN 12.1 g/dL (12.0-16.0); LYMPHOCYTES # (AUTO) 2.5 10^3/uL (1.5-3.5); LYMPHOCYTES % (AUTO) 22.3 %; MEAN CORPUSCULAR HEMOGLOBIN 27.1 pg (27.0-31.0); MEAN CORPUSCULAR HGB CONC 31.1 g/dL (32.0-36.0); MEAN CORPUSCULAR VOLUME 87.2 fL (81.0-99.0); MONOCYTES % (AUTO) 8.8 %; NEUTROPHILS # (AUTO) 7.3 10^3/uL (1.5-6.6); NEUTROPHILS % (AUTO) 65.5 %; PLT - PLATELET COUNT 331 10^3/uL (130-450); RED BLOOD COUNT 4.46 10^6/uL (4.20-5.40); RED CELL DISTRIBUTION WIDTH 14.8 % (12.0-15.0); WHITE BLOOD COUNT 11.2 x10^3/uL (4.8-10.8)
[2022-12-09 21:17] LABS: ALBUMIN 4.1 g/dL (3.2-5.5); ALBUMIN/GLOBULIN RATIO 1.2 (1.0-2.2); ALKALINE PHOSPHATASE 66 IU/L (42-121); ALT ALANINE AMINOTRANSFERASE 13 IU/L (10-60); AST ASPARTATE AMINOTRANSFERASE 19 IU/L (10-42); BILIRUBIN,TOTAL 0.6 mg/dL (0.2-1.0); BUN - BLOOD UREA NITROGEN 12 mg/dL (6-20); CALCIUM 9.6 mg/dL (8.5-10.3); CARBON DIOXIDE - CO2 21 mmol/L (21-32); CHLORIDE 88 mmol/L (101-111); CREATININE 0.6 mg/dL (0.4-1.0); CRP - C-REACTIVE PROTEIN < 1.0 mg/dL (0-1.0); GFR - MDRD 98 (>89); GLUCOSE 153 mg/dL (70-100); POTASSIUM 3.5 mmol/L (3.5-5.0); SODIUM 127 mmol/L (135-145); TOTAL PROTEIN 7.4 g/dL (6.7-8.2)
== END 2022-12-09 17:15 | disposition home or self-care (01) ==
LOC: LAB.N 17:00
PROVIDERS: ATTEND Registered Nurse
DX: R06.02 Shortness of breath (principal); R07.9 Chest pain, unspecified
CPT/HCPCS: 36415; 80053; 85025; 86140

== ENCOUNTER 2023-01-16 15:18 | Outpatient (CLI) | payer MEDICARE, OTHER ==
--- NOTE | 2023-01-16 15:49 | XRAY Report ---
PROCEDURE: Chest 2 View X-Ray INDICATIONS: SHORTNESS OF BREATH, CHEST PAIN TECHNIQUE: 2 views of the chest were acquired. COMPARISON: Chest x-ray, 10/31/2022. FINDINGS: Surgical changes and devices: None. Lungs and pleura: No pleural effusions or pneumothorax. Bilateral diffuse interstitial prominence. N o focal consolidation. Mediastinum: Mediastinal contours are normal. Heart size is normal. Bones and chest wall: No suspicious bony abnormalities. Soft tissues appear unremarkable. IMPRESSION: No acute cardiopulmonary disease. Diffuse soft tissue prominence suspicious solid chronic interstitia l lung disease. Reviewed by: Amos Jones MD on 01/16/2023 2:48 PM AKDT Approved by: Amos Jones MD on 01/16/2023 2:48 PM AKDT Station ID: [id number]
== END 2023-01-16 15:19 | disposition home or self-care (01) ==
LOC: DI 15:18
PROVIDERS: ATTEND Registered Nurse
DX: R07.9 Chest pain, unspecified (principal); R06.02 Shortness of breath

== ENCOUNTER 2023-02-13 08:00 | Outpatient (CLI) | payer MEDICARE, OTHER | END 2023-02-13 23:59 | disposition home or self-care (01) | LOC: LAB.WC 08:00 | PROVIDERS: ATTEND Nurse Practitioner | DX: N39.46 Mixed incontinence (principal) | CPT/HCPCS: 81002 ==

== ENCOUNTER 2023-02-17 11:48 | Emergency (ER) | payer MEDICARE, OTHER ==
[2023-02-17] MEDS ORDERED: ALBUTEROL NEB 2.5 MG/3 ML INH STA (12:28)
--- NOTE | 2023-02-17 12:53 | ED Physician Documentation ---
PD HPI CHEST PAIN - Stated complaint Stated Complaint: NECK PX, CHILLS, CHEST PX - Chief complaint Chief Complaint: Cardiac - History obtained from History obtained from: Patient - History of Present Illness Timing - onset: How many days ago (few) Timing - onset during: Light activity Timing - details: Gradual onset, Still present, Intermittant (she has had sinus pressure and frontal headache with greenish nasal discharge, some cough with dyspnea and feeling of tightness in chest. general malaise.) Quality: Pressure, Tightness Location: Substernal Radiation: No: Jaw, Neck, Back Associated symptoms: Shortness of air, Cough. No: Nausea, Vomiting Similar symptoms before: Diagnosis (COPD with Albuterol MDI PRN at home.) Recently seen: Not recently seen Review of Systems Constitutional: reports: Myalgias, Fatigue. denies: Fever Nose: reports: Rhinorrhea / runny nose (greenish), Sinus pressure / pain Throat: denies: Sore throat Cardiac: reports: Chest pain / pressure. denies: Palpitations, Pedal edema, Calf pain Respiratory: reports: Dyspnea, Cough, Wheezing GI: reports: Nausea. denies: Vomiting, Diarrhea Skin: denies: Rash Neurologic: reports: Headache (frontal). denies: Confused, Altered mental status PD PAST MEDICAL HISTORY - Past Medical History Cardiovascular: Hypertension, High cholesterol Respiratory: COPD, Sleep apnea Endocrine/Autoimmune: Type 2 diabetes GI: None Psych: Anxiety - Present Medications Home Medications: Ambulatory Orders Medication Instructions Recorded Confirmed Amlodipine Besylate [Norvasc] 5 mg PO DAILY 07/05/22 07/05/22 Atenolol [Tenormin] 100 mg PO DAILY 07/05/22 07/05/22 Atorvastatin [Lipitor] 20 mg PO DAILY 07/05/22 07/05/22 Azelastine HCl 137 mcg NS BID #1 each 07/05/22 Carisoprodol [Soma] 350 mg PO Q8HR PRN 07/05/22 07/05/22 Clobetasol 0.05% Oint [Temovate 1 applic TOP DAILY 07/05/22 07/05/22 0.05% Oint] Gabapentin [Neurontin] 600 mg PO Q6HR 07/05/22 07/05/22 Hydrocodone/Acetaminophen 10 - 325 mg PO Q4HR PRN 07/05/22 07/05/22 [Hydrocodone-Acetamin 10-325 mg] Lidocaine Ointment 5% [Xylocaine 1 applic TOP QID 07/05/22 07/05/22 Ointment 5%] Lidocaine Ointment 5% [Xylocaine 1 applic TOP QID PRN #35.44 gm 07/05/22 Ointment 5%] Losartan [Cozaar] 100 mg PO DAILY 07/05/22 07/05/22 Metformin HCl 1,000 mg PO BID 07/05/22 07/05/22 Miconazole Nitrate [Miconazole 7] 100 mg TOP HS 07/05/22 07/05/22 Omeprazole 20 mg PO DAILY 07/05/22 07/05/22 Oxymorphone HCl [Oxymorphone HCl 10 mg PO BID 07/05/22 07/05/22 ER] PARoxetine HCL [Paxil] 20 mg PO DAILY 07/05/22 07/05/22 Rivaroxaban [Xarelto] 20 mg PO DAILY 07/05/22 07/05/22 SITagliptin [Januvia] 100 mg PO DAILY 07/05/22 07/05/22 ALPRAZolam [Xanax] 0.25 mg PO BID PRN #10 tablet 10/31/22 Albuterol Sulf [Ventolin Hfa 2 - 3 puffs INH QID #1 each 10/31/22 Inhaler] Benzonatate [Tessalon] 100 mg PO TID PRN #20 cap 10/31/22 Doxycycline Hyclate 100 mg PO BID 5 Days #10 cap 10/31/22 dexAMETHasone [Decadron] 4 mg PO DAILY #5 tablet 10/31/22 levoFLOXacin [Levofloxacin] 750 mg PO QDAC #7 tablet 11/18/22 Albuterol Sulf [Ventolin Hfa 2 puffs INH QID #1 each 02/17/23 Inhaler] Inhaler, Assist Devices [Space 1 each MC QID #1 ea 02/17/23 Chamber] Ondansetron Odt [Zofran] 4 mg TL Q6H PRN #20 tablet 02/17/23 cefUROXime axetiL [Ceftin] 250 mg PO Q12H #10 tablet 02/17/23 dexAMETHasone [Decadron] 4 mg PO DAILY #5 tablet 02/17/23 - Allergies Allergies/Adverse Reactions: Allergies Allergy/AdvReac Type Severity Reaction Status Date / Time amoxicillin [From Augmentin] Allergy Nausea Verified 07/05/22 13:11 clavulanic acid Allergy Nausea Verified 07/05/22 13:11 [From Augmentin] prochlorperazine Allergy Anaphylaxis Verified 07/05/22 13:11 [From Compazine] promethazine [From Phenergan] Allergy Unknown Verified 07/05/22 14:14 Sulfa (Sulfonamide Allergy Hives Verified 07/05/22 13:11 Antibiotics) Paper Tape Allergy Rash Uncoded 11/18/22 18:26 - Social History Does the pt smoke?: No Smoking Status: Never smoker Does the pt have substance abuse?: No PD ED PE NORMAL - Vitals Vital signs reviewed: Yes - General General: Alert and oriented X 3, No acute distress, Well developed/nourished - HEENT HEENT: Ears normal, Pharynx benign - Neck Neck: Supple, no meningeal sign, No adenopathy - Cardiac Cardiac: RRR, No murmur - Respiratory Respiratory: No: Clear bilaterally (no coarse sounds; has some end exp wheezing diffusely, more to the left. ) - Abdomen Abdomen: Soft, Non tender - Derm Derm: Normal color, Warm and dry - Extremities Extremities: No edema, No calf tenderness / cord - Neuro Neuro: Alert and oriented X 3, No motor deficit, Normal speech Results - Vitals Vitals: Vital Signs - 24 hr 02/17/23 14:00 Heart Rate 68 Respiratory 20 Rate Blood Pressure 154/81 H O2 Saturation 97 Oxygen O2 Source Room air - EKG (time done) 12:32 EKG releavant findings:: EKG personally interpreted by author of this note. Relevant findings are: Rate: Rate (enter#) (65) [place]: Normal Intervals: Normal [place] QRS: Normal Ischemia: Normal ST segments. No: ST elevation c/w ischemia, ST depression - Labs Labs: Laboratory Tests 02/17/23 02/17/23 02/17/23 12:46 12:46 12:46 WBC 8.2 RBC 4.08 L Hgb 10.8 L Hct 35.8 L MCV 87.7 MCH 26.5 L MCHC 30.2 L RDW 14.6 Plt Count 268 MPV 8.5 Neut # (Auto) 4.6 Lymph # (Auto) 2.4 [place] # (Auto) 0.8 Eos # (Auto) 0.4 Baso # (Auto) 0.1 Absolute Nucleated RBC 0.00 Nucleated RBC % 0.0 Sodium 130 L Potassium 4.6 Chloride 92 L Carbon Dioxide 30 Anion Gap 8.0 BUN 11 Creatinine 0.6 Estimated GFR (MDRD) 98 Glucose 115 H Calcium 9.1 Magnesium 2.2 Total Bilirubin 0.3 AST 17 ALT 16 Alkaline Phosphatase 71 B-Natriuretic Peptide 203 H Total Protein 6.9 Albumin 4.0 Globulin 2.9 Albumin/Globulin Ratio 1.4 Lipase 31 - Rads (name of study) chest xray Relevant Findings:: Prelim report reviewed (no acute process.), EMP independent interpretation of test (no CHF nor infiltrate.), See rad report PD Medical Decision Making - ED course Complexity details: reviewed results, re-evaluated patient (she does feel much better re; chest tightness after neb treatment in ER. ), considered differential (seems infectious with nasal discharge, sinus pressure, cough and dyspnea. ), d/w patient Reviewed Lab Results: chest xray is clear. ECG normal. Seems infectious. history of COPD so consider bacterial as well. Allergic to Augmentin. Departure - Departure Disposition: Home, Self Care Clinical Impression: Sinusitis, acute, Dyspnea, Chest discomfort Condition: Stable Record reviewed to determine appropriate education?: Yes Prescriptions: cefUROXime axetiL [Ceftin] 250 mg PO Q12H #10 tablet dexAMETHasone [Decadron] 4 mg PO DAILY #5 tablet Inhaler, Assist Devices [Space Chamber] 1 each MC QID #1 ea Albuterol Sulf [Ventolin Hfa Inhaler] 2 puffs INH QID #1 each Ondansetron Odt [Zofran] 4 mg TL Q6H PRN #20 tablet PRN Reason: Nausea / Vomiting Comments: Your symptoms of the frontal pressure along with greenish nasal discharge and some trouble breathing seems likely related to an infection of the sinus and bronchioles. This may be viral but given your description, I be concerned for potential bacterial sinus infection. We can go with Ceftin/cefuroxime antibiotic. This is not one of the ones you are allergic to. We can also try to help with inflammation of the sinuses and bronchioles with steroid anti-inflammatory for a few days. Dexamethasone daily for 5 days as directed. Use your albuterol inhaler with the spacer 2 to 3 puffs 4 times daily regularly. I wrote a prescription for the spacer. Your basic blood test here appear normal. Your chest x-ray did not show any signs of pneumonia, collapsed lung, fluid around the lung. There potentially can be some inflammation around the lung or bronchioles causing some your discomfort. The above anti-inflammatories should help that. Continue your other usual medicines. Follow-up with your primary care if not improving well over the next few days and return to the ER if needed. I sent your prescriptions to [facility] pharmacy. Discharge Date/Time: 02/17/23 14:30
[2023-02-17 12:54] LABS: BASOPHILS # (AUTO) 0.1 10^3/uL (0.0-0.1); BASOPHILS % (AUTO) 0.7 %; EOSINOPHILS # (AUTO) 0.4 10^3/uL (0.0-0.7); EOSINOPHILS % (AUTO) 4.3 %; HCT - HEMATOCRIT 35.8 % (37.0-47.0); HGB - HEMOGLOBIN 10.8 g/dL (12.0-16.0); LYMPHOCYTES # (AUTO) 2.4 10^3/uL (1.5-3.5); LYMPHOCYTES % (AUTO) 28.9 %; MEAN CORPUSCULAR HEMOGLOBIN 26.5 pg (27.0-31.0); MEAN CORPUSCULAR HGB CONC 30.2 g/dL (32.0-36.0); MEAN CORPUSCULAR VOLUME 87.7 fL (81.0-99.0); MEAN PLATELET VOLUME 8.5 fL (7.9-10.8); MONOCYTES # (AUTO) 0.8 10^3/uL (0.0-1.0); MONOCYTES % (AUTO) 9.3 %; NEUTROPHILS # (AUTO) 4.6 10^3/uL (1.5-6.6); NEUTROPHILS % (AUTO) 55.7 %; PLT - PLATELET COUNT 268 10^3/uL (130-450); RED BLOOD COUNT 4.08 10^6/uL (4.20-5.40); RED CELL DISTRIBUTION WIDTH 14.6 % (12.0-15.0); WHITE BLOOD COUNT 8.2 x10^3/uL (4.8-10.8)
--- NOTE | 2023-02-17 12:59 | XRAY Report ---
PROCEDURE: Chest 1 View X-Ray INDICATIONS: Chest Pain TECHNIQUE: One view of the chest was acquired. COMPARISON: None. FINDINGS: Surgical changes and devices: Post surgical changes are seen in lower cervical spine. Lungs and pleura: No pleural effusions or pneumothorax. Lungs are clear. Mediastinum: Mildly tortuous thoracic aorta is seen. Heart size is enlarged. Bones and chest wall: No suspicious bony lesions. Overlying soft tissues appear unremarkable. IMPRESSION: No acute cardia pulmonary pathology. Reviewed by: Gaurang Esparza MD on 02/17/2023 12:58 PM PDT Approved by: Gaurang Esparza MD on 02/17/2023 12:58 PM PDT Station ID: [id number]
[2023-02-17 13:08] LABS: ALBUMIN/GLOBULIN RATIO 1.4 (1.0-2.2); BILIRUBIN,TOTAL 0.3 mg/dL (0.2-1.0); CALCIUM 9.1 mg/dL (8.5-10.3); CREATININE 0.6 mg/dL (0.4-1.0); MAGNESIUM 2.2 mg/dL (1.7-2.8); POTASSIUM 4.6 mmol/L (3.5-5.0); TOTAL PROTEIN 6.9 g/dL (6.7-8.2)
[2023-02-17] MEDS ORDERED: DEXAMETHASONE 10 MG/ML VIAL PO STA (13:46)
[2023-02-17] MEDS ORDERED: CHERRY SYRUP 10 ML UDC PO ONE (13:46)
[2023-02-17] MEDS ORDERED: HYDROmorphone 2 MG/ML VIAL IM STA (13:46)
[2023-02-17 14:09] VITALS: BP 154/81
== END 2023-02-17 14:30 | disposition home or self-care (01) ==
LOC: ED 11:48
DX: J01.90 Acute sinusitis, unspecified (principal); R06.00 Dyspnea, unspecified; R07.89 Other chest pain
CPT/HCPCS: 36415; 71045; 80053; 83690; 83735; 83880; 85025; 93005; 94640; 96372; 99284; A9270; J1170

== ENCOUNTER 2023-03-11 09:37 | Outpatient (CLI) | payer MEDICARE, OTHER ==
--- NOTE | 2023-03-11 16:19 | DEXA Report ---
PROCEDURE: Dexa Spine and/or Hip INDICATIONS: POST MENOPAUSAL TECHNIQUE: Dual energy x-ray absorptiometry (DXA) was performed on a Mantex System. Regions measur ed are the AP Spine, femoral neck, and if needed forearm. COMPARISON: None FINDINGS: Lumbar Spine: Bone Mineral Density 0.93 g/cm/cm,T score -2.1. Osteopenia Left Femoral Neck: Bone Mineral Density 0.0 g/cm/cm, T score -1.6. [place] Impression: By WHO criteria, this patient has osteopenia of the lumbar spine and left femoral neck. Patients with diagnosis of osteoporosis or osteopenia should have regular bone mineral density assess ment. For those eligible for Medicare, routine testing is allowed once every 2 years. Testing frequ ency can be increased for patients who have rapidly progressing disease or for those who are receivin g medical therapy to restore bone mass. Reviewed by: Kavitha Hurtado MD on 03/11/2023 4:18 PM PDT Approved by: Kavitha Hurtado MD on 03/11/2023 4:18 PM PDT Station ID: [id number]
== END 2023-03-11 09:38 | disposition home or self-care (01) ==
LOC: DI 09:37
PROVIDERS: ATTEND Nurse Practitioner
DX: Z78.0 Asymptomatic menopausal state (principal); M85.89 Other specified disorders of bone density and structure, multiple sites

== ENCOUNTER 2023-03-11 09:38 | Outpatient (CLI) | payer MEDICARE, OTHER ==
--- NOTE | 2023-03-18 10:39 | Mammography Report ---
BILATERAL DIGITAL SCREENING MAMMOGRAM 3D/2D: 03/11/2023 CLINICAL: Routine screening. No prior exams were available for comparison. Both breasts are almost entirely fatty (category a/<25% glandular tissue). There are benign calcifications in both breasts. No significant masses, calcifications, or other findings are seen in either breast. IMPRESSION: BENIGN There is no mammographic evidence of malignancy. A 1 year screening mammogram is recommended. Based on the Tyrer Cuzick model (a risk assessment model) the patients lifetime risk is 2.7% and her 10 year risk is 2.0%. According to the ACR, ACS, and NCCN guidelines, an annual breast MRI exam ino g with mammogram is recommended if the patients lifetime risk is 20% or greater. This exam was interpreted at Station ID: [id number]. NOTE: For mammograms, a report in lay terms will be sent to the patient. Approximately 15% of breast malignancies will not be visualized mammographically. In the management of a palpable breast mass, a negative mammogram must not discourage biopsy of a clinically suspicious lesion. Electronically Signed By: Joellen ibrahim/ramona:03/17/2023 12:38:49 letter sent: No_Letter ACR BI-RADS Category 2: Benign Finding(s) 3342F PARENCHYMAL PATTERN: (F) - The breast(s) demonstrate(s) diffuse fatty replacement. BI-RADS CATEGORY: (2) - 2 Mammogram [id number] 1 year screening LATERALITY: (B)
== END 2023-03-11 09:39 | disposition home or self-care (01) ==
LOC: DI 09:38
PROVIDERS: ATTEND Nurse Practitioner
DX: Z12.31 Encounter for screening mammogram for malignant neoplasm of breast (principal)

== ENCOUNTER 2023-03-26 16:43 | Emergency (ER) | payer MEDICARE, OTHER ==
--- NOTE | 2023-03-26 17:07 | ED Physician Documentation ---
History of Present Illness - Stated complaint Stated Complaint: BACK PX/SOA - Chief complaint Chief Complaint: Back Pain - History obtained from History obtained from: Patient - Additonal information Additional information: This is a 72-year-old female with a past medical history of chronic pain on hydrocodone and methadone presents with bilateral flank pain, hematuria, and dysuria (no urg/freq, no vaginal dc), and is also complaining of sinus infection. Patient states that about 2 weeks ago she went to her PCP for a UTI symptoms and was given 3 days of Cipro which she took. Symptoms improved slightly but did not completely go away and have been lingering ever since, worsening somewhat over the last couple of days. She also states she has had nasal congestion over the course last 1-2 weeks with some sinus fullness and headache. She has not had a fever, no chills, no chest pain or difficulty breathing, no nausea or vomiting, no diarrhea or constipation. Tolerating po well. She has been using nasal spray for her nose occasionally, has not attempted any other treatment for sinus sx. No known sick contacts. Review of Systems Constitutional: reports: Fatigue. denies: Fever, Chills, Myalgias, Weight Loss, Sweats Eyes: reports: Reviewed and negative Ears: reports: Reviewed and negative Nose: reports: Rhinorrhea / runny nose, Congestion, Sinus pressure / pain Cardiac: reports: Reviewed and negative Respiratory: reports: Reviewed and negative GI: reports: Reviewed and negative : reports: Dysuria, Hematuria Skin: reports: Reviewed and negative Musculoskeletal: reports: Reviewed and negative Neurologic: reports: Reviewed and negative PD PAST MEDICAL HISTORY - Past Medical History Past Medical History: Yes Cardiovascular: Hypertension, High cholesterol Respiratory: COPD, Sleep apnea Endocrine/Autoimmune: Type 2 diabetes GI: None Psych: Anxiety - Past Surgical History Past Surgical History: Yes - Present Medications Home Medications: Ambulatory Orders Medication Instructions Recorded Confirmed Amlodipine Besylate [Norvasc] 5 mg PO DAILY 07/05/22 07/05/22 Atenolol [Tenormin] 100 mg PO DAILY 07/05/22 07/05/22 Atorvastatin [Lipitor] 20 mg PO DAILY 07/05/22 07/05/22 Azelastine HCl 137 mcg NS BID #1 each 07/05/22 Carisoprodol [Soma] 350 mg PO Q8HR PRN 07/05/22 07/05/22 Clobetasol 0.05% Oint [Temovate 1 applic TOP DAILY 07/05/22 07/05/22 0.05% Oint] Gabapentin [Neurontin] 600 mg PO Q6HR 07/05/22 07/05/22 Hydrocodone/Acetaminophen 10 - 325 mg PO Q4HR PRN 07/05/22 07/05/22 [Hydrocodone-Acetamin 10-325 mg] Lidocaine Ointment 5% [Xylocaine 1 applic TOP QID 07/05/22 07/05/22 Ointment 5%] Lidocaine Ointment 5% [Xylocaine 1 applic TOP QID PRN #35.44 gm 07/05/22 Ointment 5%] Losartan [Cozaar] 100 mg PO DAILY 07/05/22 07/05/22 Metformin HCl 1,000 mg PO BID 07/05/22 07/05/22 Miconazole Nitrate [Miconazole 7] 100 mg TOP HS 07/05/22 07/05/22 Omeprazole 20 mg PO DAILY 07/05/22 07/05/22 Oxymorphone HCl [Oxymorphone HCl 10 mg PO BID 07/05/22 07/05/22 ER] PARoxetine HCL [Paxil] 20 mg PO DAILY 07/05/22 07/05/22 Rivaroxaban [Xarelto] 20 mg PO DAILY 07/05/22 07/05/22 SITagliptin [Januvia] 100 mg PO DAILY 07/05/22 07/05/22 ALPRAZolam [Xanax] 0.25 mg PO BID PRN #10 tablet 10/31/22 Albuterol Sulf [Ventolin Hfa 2 - 3 puffs INH QID #1 each 10/31/22 Inhaler] Benzonatate [Tessalon] 100 mg PO TID PRN #20 cap 10/31/22 Doxycycline Hyclate 100 mg PO BID 5 Days #10 cap 10/31/22 dexAMETHasone [Decadron] 4 mg PO DAILY #5 tablet 10/31/22 levoFLOXacin [Levofloxacin] 750 mg PO QDAC #7 tablet 11/18/22 Albuterol Sulf [Ventolin Hfa 2 puffs INH QID #1 each 02/17/23 Inhaler] Inhaler, Assist Devices [Space 1 each QID #1 ea 02/17/23 Chamber] Ondansetron Odt [Zofran] 4 mg TL Q6H PRN #20 tablet 02/17/23 cefUROXime axetiL [Ceftin] 250 mg PO Q12H #10 tablet 02/17/23 dexAMETHasone [Decadron] 4 mg PO DAILY #5 tablet 02/17/23 Azithromycin [Zithromax] 0 mg PO DAILY #6 tablet 03/26/23 - Allergies Allergies/Adverse Reactions: Allergies Allergy/AdvReac Type Severity Reaction Status Date / Time amoxicillin [From Augmentin] Allergy Nausea Verified 03/26/23 16:51 clavulanic acid Allergy Nausea Verified 03/26/23 16:51 [From Augmentin] prochlorperazine Allergy Anaphylaxis Verified 03/26/23 16:51 [From Compazine] promethazine [From Phenergan] Allergy Unknown Verified 03/26/23 16:51 Sulfa (Sulfonamide Allergy Hives Verified 03/26/23 16:51 Antibiotics) Paper Tape Allergy Rash Uncoded 11/18/22 18:26 - Social History Does the pt smoke?: No Smoking Status: Never smoker Does the pt have substance abuse?: No PD ED PE NORMAL - Vitals Vital signs reviewed: Yes - General General: Alert and oriented X 3, No acute distress, Well developed/nourished - HEENT HEENT: Atraumatic, Ears normal, Moist mucous membranes, Pharynx benign - Neck Neck: Supple, no meningeal sign, No adenopathy - Cardiac Cardiac: RRR, No murmur - Respiratory Respiratory: No respiratory distress, Clear bilaterally - Abdomen Abdomen: Normal bowel sounds, Soft, Non tender, Non distended - Back Back: No spinal TTP, Other (bilat entire back paravert ttp to light touch) - Derm Derm: Normal color, Warm and dry, No rash - Neuro Neuro: Alert and oriented X 3 Eye Opening: Spontaneous Motor: Obeys Commands Verbal: Oriented GCS Score: 15 - Psych Psych: Normal mood, Normal affect Results - Vitals Vitals: Vital Signs - 24 hr 03/26/23 16:46 Temperature 36.5 C Heart Rate 89 Respiratory 16 Rate Blood Pressure 185/85 H O2 Saturation 97 Oxygen O2 Source Room air - Labs Labs: Laboratory Tests 03/26/23 03/26/23 03/26/23 17:18 17:18 18:15 WBC 9.7 RBC 4.38 Hgb 11.1 L Hct 36.8 L MCV 84.0 MCH 25.3 L MCHC 30.2 L RDW 15.4 H Plt Count 307 MPV 8.2 Neut # (Auto) 6.5 Lymph # (Auto) 2.0 [place] # (Auto) 0.8 Eos # (Auto) 0.2 Baso # (Auto) 0.1 Absolute Nucleated RBC 0.00 Nucleated RBC % 0.0 Sodium 134 L Potassium 4.1 Chloride 94 L Carbon Dioxide 28 Anion Gap 12.0 BUN 12 Creatinine 0.6 Estimated GFR (MDRD) 98 Glucose 118 H Calcium 9.3 Total Bilirubin 0.4 AST 16 ALT 14 Alkaline Phosphatase 70 Total Protein 7.5 Albumin 4.0 Globulin 3.5 Albumin/Globulin Ratio 1.1 Lipase 29 Urine Color YELLOW Urine Clarity CLEAR Urine pH 6.0 Ur Specific [place] 1.010 Urine Protein NEGATIVE Urine Glucose (UA) NEGATIVE Urine Ketones NEGATIVE Urine Occult Blood NEGATIVE Urine Nitrite NEGATIVE Urine Bilirubin NEGATIVE Urine Urobilinogen 0.2 (NORMAL) Ur Leukocyte Esterase NEGATIVE Ur Microscopic Review NOT INDICATED Urine Culture Comments NOT INDICATED PD Medical Decision Making - ED course Complexity details: reviewed results, re-evaluated patient, considered differential, d/w patient ED course: 72-year-old female with chronic pain syndrome presented with multiple different concerns today including bilateral flank pain, reported hematuria, dysuria, and sinus congestion and facial pain. We obtained labs to evaluate for possible urinary tract infection which was negative, and no blood no other signs of infection. Her CBC and chemistry were stable as well. I discussed these findings with patient and she subsequently stated that she actually had a herpes outbreak and thinks that she had dysuria from that. Outbreak started about a week ago and she has been taking valacyclovir is not along with a topical ointment already for the symptoms. Patient then asked for additional pain medication, she received 10mg of norco here but I declined to prescribe any as she is already on [place] and methadone on outpatient basis. I suspect her pain in the back is related to her chronic back pain at this time, there is no other acute findings on physical exam to suggest acute back injury, or other gastrointestinal process. She is tolerating po well, no n/v, no fever. The patient does report nasal congestion that is been going on for a couple of weeks, along with facial pain and fullness. She is afebrile and nontoxic and this is likely viral however given the duration of her symptoms I will give her a course of azithromycin as patient has allergy to amoxicillin and Augmentin. She was advised to use nasal spray and humidification, can try [id number] Decongestant if desired. I recommended she follow-up with her primary doctor next week to follow-up on the symptoms and discussed return precautions in detail if symptoms worsen. Departure - Departure Disposition: 01 Home, Self Care Clinical Impression: Back pain Qualifiers: Back pain location: low back pain Chronicity: chronic Back pain laterality: bilateral Sciatica presence: without sciatica Qualified Code(s): M54.50 - Low back pain, unspecified Acute sinusitis Qualifiers: Sinusitis location: unspecified location Recurrence: non-recurrent Qualified Code(s): J01.90 - Acute sinusitis, unspecified Condition: Good Instructions: ED Chronic Pain Management, ED Sinusitis Abx Tx Prescriptions: Azithromycin [Zithromax] 0 mg PO DAILY #6 tablet Comments: Your urine test was negative for signs of infection or blood. I suspect your pain is secondary to your chronic back pain. There are no signs of urinary tract infection at this time. Please continue your chronic pain regimen. I have given you a short course of antibiotics for your sinus symptoms given the duration. Please continue nasal spray and if you would like, [id number] decongestants. Please follow-up with your primary doctor next week as needed if symptoms do not improve or return to the ER if worsening.
[2023-03-26] MEDS ORDERED: HYDROcod/ACETAM 5/325 MG TABLET PO STA (17:14)
[2023-03-26 17:27] LABS: BASOPHILS # (AUTO) 0.1 10^3/uL (0.0-0.1); BASOPHILS % (AUTO) 0.6 %; EOSINOPHILS # (AUTO) 0.2 10^3/uL (0.0-0.7); EOSINOPHILS % (AUTO) 2.3 %; HCT - HEMATOCRIT 36.8 % (37.0-47.0); HGB - HEMOGLOBIN 11.1 g/dL (12.0-16.0); LYMPHOCYTES % (AUTO) 20.6 %; MEAN CORPUSCULAR HEMOGLOBIN 25.3 pg (27.0-31.0); MEAN CORPUSCULAR HGB CONC 30.2 g/dL (32.0-36.0); MEAN PLATELET VOLUME 8.2 fL (7.9-10.8); MONOCYTES # (AUTO) 0.8 10^3/uL (0.0-1.0); MONOCYTES % (AUTO) 8.2 %; NEUTROPHILS # (AUTO) 6.5 10^3/uL (1.5-6.6); PLT - PLATELET COUNT 307 10^3/uL (130-450); RED BLOOD COUNT 4.38 10^6/uL (4.20-5.40); RED CELL DISTRIBUTION WIDTH 15.4 % (12.0-15.0); WHITE BLOOD COUNT 9.7 x10^3/uL (4.8-10.8)
[2023-03-26 17:38] LABS: ALBUMIN/GLOBULIN RATIO 1.1 (1.0-2.2); BILIRUBIN,TOTAL 0.4 mg/dL (0.2-1.0); CALCIUM 9.3 mg/dL (8.5-10.3); CREATININE 0.6 mg/dL (0.4-1.0); POTASSIUM 4.1 mmol/L (3.5-5.0); TOTAL PROTEIN 7.5 g/dL (6.7-8.2)
[2023-03-26 18:21] LABS: BILIRUBIN,URINE NEGATIVE (NEGATIVE); GLUCOSE, URINE (UA) NEGATIVE (NEGATIVE); KETONES,URINE (UA) NEGATIVE (NEGATIVE); LEUKOCYTE ESTERASE, URINE NEGATIVE (NEGATIVE); NITRITE,URINE NEGATIVE (NEGATIVE); OCCULT BLOOD,URINE NEGATIVE (NEGATIVE); PROTEIN,URINE NEGATIVE (NEGATIVE); UROBILINOGEN,URINE 0.2 (NORMAL) E.U./dL (NORMAL)
[2023-03-26 18:22] LABS: CLARITY,URINE CLEAR (CLEAR)
[2023-03-26 19:04] VITALS: BP 172/76
== END 2023-03-26 19:01 | disposition home or self-care (01) ==
LOC: ED 16:43
DX: M54.50 Low back pain, unspecified (principal); J01.90 Acute sinusitis, unspecified; I10 Essential (primary) hypertension; E78.00 Pure hypercholesterolemia, unspecified; E11.9 Type 2 diabetes mellitus without complications; J44.9 Chronic obstructive pulmonary disease, unspecified; Z79.899 Other long term (current) drug therapy; Z79.01 Long term (current) use of anticoagulants; Z79.84 Long term (current) use of oral hypoglycemic drugs
CPT/HCPCS: 36415; 80053; 81003; 83690; 85025; 99283; A9270; 81001; 87086

== ENCOUNTER 2023-04-02 08:00 | Outpatient (CLI) | payer MEDICARE, OTHER ==
--- NOTE | 2023-04-02 12:46 | XRAY Report ---
PROCEDURE: Hip 2 View RT INDICATIONS: RIGHT HIP PAIN TECHNIQUE: 2 views of the hip were acquired. COMPARISON: Pelvis and right hip radiographs 08/17/2019 FINDINGS: Bones: No fractures or dislocations. No suspicious bony lesions. Doubtful narrowing of joint spac e and possible osteophytic lipping. Soft tissues: No suspicious soft tissue calcifications . IMPRESSION: No acute bony abnormality. If there remains a high clinical concern for fracture, consider cross-sect ional imaging now. If pain persists, consider repeat x-ray in 10-14 days or cross-sectional imaging. Kellgren-Binh scale of osteoarthritis: Grade 1-2: mild osteoarthritis. Reviewed by: Avinash Nguyen MD on 04/02/2023 12:44 PM PDT Approved by: Avinash Nguyen MD on 04/02/2023 12:44 PM PDT Station ID: [id number]
== END 2023-04-02 23:59 | disposition home or self-care (01) ==
LOC: DI.WOS 08:00
PROVIDERS: ATTEND Physician Assistant Surgical
DX: M16.11 Unilateral primary osteoarthritis, right hip (principal)